=== PATIENT | female | born 1990 | race Caucasian/White ===

== ENCOUNTER 2017-12-24 15:45 | Emergency (ER) | payer MEDICAID, OTHER ==
--- NOTE | 2017-12-24 17:27 | EDPHY ---
H & P Stated Complaint: small firm nodule in upper l arm/swelling/pain l lower leg / no trauma Source: Patient Exam Limitations: No limitations - Personal History LMP (Females 10-55): IUD In Place Current Tetanus/Diphtheria Vaccine: Yes - Medical/Surgical History Hx Asthma: No Hx Chronic Respiratory Disease: No Hx Diabetes: No Hx Cardiac Disease: No Hx Renal Disease: No Hx Cirrhosis: No Hx Alcoholism: No Hx HIV/AIDS: No Hx Splenectomy or Spleen Trauma: No Other PMH: denies - Social History Smoking Status: Current every day smoker Time Seen by Provider: 12/24/17 17:26 HPI/ROS: HPI: This is a 27-year-old female who presents with Chief Complaint: small firm nodule in upper l arm/swelling/pain l lower leg /no trauma Location: Left upper arm Quality: Nodule Duration: 3 weeks Signs and Symptoms: No bleeding, no radiation, no numbness, no weakness, no tingling, no incontinence, no decreased range of motion, no swelling, no pain, no fever Timing: Constant Severity: Mild Context: Patient is right-hand dominant, presents with complaints of noticing a lung nodule or lump in her left upper arm near her vein. Denies any trauma/ redness/warmth/paresthesias/weakness. She also complains of left lateral ankle swelling and decreased range of motion x1 week. Again denies any trauma. Reports that both her legs swell after standing on them for long periods of time. Denies and any recent long distance travel. IUD in place. + tobacco user Denies LOC/head injury/neck pain/dizziness/nausea/vomiting/amnesia. Does not have a primary care provider. Denies IV drug use. Modifying Factors: None Comment: ROS: see HPI Constitutional: No fever, no chills, no weight loss Eyes: No blurred vision Respiratory: No shortness of breath, no cough Cardiovascular: No chest pain Gastrointestinal: No nausea, no vomiting no diarrhea Genitourinary: No dysuria Extremities: No myalgias Neurologic: No weakness, no numbness Skin: No rashes Hematologic: No bruising, no bleeding MEDICAL/SURGICAL/SOCIAL HISTORY: Medical history: Generally healthy. Does not take any regular medications. Surgical history: Denies Social history: Tobacco user. Family history noncontributory. CONSTITUTIONAL: Extremely well-appearing adult white female, awake and alert, no obvious distress HEENT: Atraumatic and normocephalic. NECK: supple, no midline tenderness, flexion 45 degrees, extension 45 degrees, right and left lateral flexion 45 degrees. No meningismus. Cardiovascular: Normal S1/S2, regular rate, regular rhythm, without murmur rub or gallop. PULMONARY/CHEST: Symmetrical and nontender. no crepitus. Clear to auscultation bilaterally. Good air movement. No accessory muscle usage. ABDOMEN: Soft, nondistended, nontender, no ecchymosis. PELVIC: no pain with rocking; bilateral hips flexion 125 degrees, extension 30 degrees, with no pain internal rotation and no pain external rotation. BACK: No midline tenderness, no paraspinous spasm, deep tendon reflexes 2/2, no pain with straight leg raise, No foot drop. Achilles reflexes are equal bilaterally. Able to walk on heels and toes without difficulty. EXTREMITIES: 2/2 pulses, left upper arm superior to the elbow crease shows 1 mm subcutaneous palpable nodule; no erythema/warmth/fluctuance. Left Ankle: Plantar flexion to 50, dorsiflexion to 20. Foot inversion to 35 degree. Moderate tenderness/swelling Anterior talofibular ligament. No tenderness/ swelling Calcaneofibular ligament, no tenderness/swelling posterior talofibular ligament, no tenderness/swelling posterior inferior tibiofibular ligament. Achilles tendon intact. strength 5/5, DIP/PIP/MCP flexion/extension intact with good light touch sensation. no deformities, no clubbing, no cyanosis. Bilateral lower extremity nonpitting edema noted to mid calf. NEUROLOGICAL: no focal neuro deficits. GCS 15. Light touch sensation intact. SKIN: Warm and dry, multiple tattoos noted, no erythema. no rash. Good capillary refill. (Dorcas Altman) Constitutional: Initial Vital Signs Temperature (C) 36.7 C 12/24/17 16:11 Heart Rate 84 12/24/17 16:11 Respiratory Rate 18 12/24/17 16:11 Blood Pressure 154/71 H 12/24/17 16:11 O2 Sat (%) 95 12/24/17 16:11 O2 Delivery Mode Room Air Allergies/Adverse Reactions: erythromycin base [From Pediazole] Allergy (Verified 12/24/17 16:10) sulfisoxazole [From Pediazole] Allergy (Verified 12/24/17 16:10) Home Medications: Medication Instructions Recorded MIRENA 12/24/17 Medical Decision Making ED Course/Re-evaluation: Nodule noted in the upper left for harm consistent with vein varicosity verses valve of vein. Low risk for DVT. No signs of cellulitis/thrombophlebitis/ abscess. Left ankle x-ray shows no fracture. Given ankle stirrup split and crutches. Advised RICE treatment Dependent pedal edema; advised to wear compression stockings, reduce salt intake , elevate legs No signs of neurovascular compromise/tenting of skin/compartment syndrome/ extremities and joints examined above and below area of concern and are neurovascularly intact. This patient was seen under the supervision of my secondary supervising physician. I evaluated care for this patient independently. (Dorcas Altman) Differential Diagnosis: Differential diagnosis includes but is not limited to DVT, valve of vein, lipoma. (Dorcas Altman) Other Provider: The patient was evaluated and managed by the Physician Financial Coach. I discussed the patient's presentation and course with the physician assistant federal public defender and agree with the evaluation. My co-signature indicates that I have reviewed this chart and I agree with the findings and plan of care as documented. I am the secondary supervising physician. (Emmanuelle Beckham) Departure - Departure Disposition: Home, Routine, Self-Care Clinical Impression: Dependent edema, Inflammation, vein Left ankle sprain Qualifiers: Encounter type: initial encounter Involved ligament of ankle: unspecified ligament Qualified Code(s): S93.402A - Sprain of unspecified ligament of left ankle, initial encounter Condition: Good Instructions: R.I.C.E. Treatment (ED), Edema (ED), Venous Insufficiency (DC) Additional Instructions: Wear ankle splint and use crutches to aid ambulation until pain free. Elevate legs at the end of the day, wear compression stockings, avoid standing for long periods of time on your feet, reduce salt intake. Establish care with primary provider at [facility]. The x-rays obtained in the emergency department today demonstrate no evidence of an obvious fracture. Referrals: [facility],. [Clinic] - As per Instructions
[2017-12-24 19:38] VITALS: BP 148/96
== END 2017-12-24 19:37 | disposition home or self-care (01) ==
DX: S93.402A Sprain of unspecified ligament of left ankle, initial encounter (principal); R60.0 Localized edema; I80.9 Phlebitis and thrombophlebitis of unspecified site; F17.200 Nicotine dependence, unspecified, uncomplicated; X58.XXXA Exposure to other specified factors, initial encounter
CPT/HCPCS: L4350